=== PATIENT | female | born 1995 | race African-American/Black ===

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

== ENCOUNTER 2017-07-25 22:29 | Emergency (ER) | payer MEDICAID ==
[~2017-07-25] VITALS: Ht 160 cm; Wt 49.0 kg
--- NOTE | 2017-07-25 22:59 | Emergency Room Report ---
History of Present Illness General Chief Complaint: Abdominal Pain Source: Patient Present Illness HPI 22-year-old female p/w epigastric abd pain for 2 days. Patient states pain started gradually , localized to epigastric area, non radiating, burning in nature, intermittent. No relieving or exacerbating factors. Pt reports n/v, more than 5 episodes of nbnb vomiting,Denies black or bloody stools. Patient was admitted to [facility] in the past for cyclic vomiting syndrome Denies fever, chills. No hx of abdominal surgeries. No hx of endoscopies/colonoscopies. Denies any drug or alcohol use. Patient is currently on her menstrual cycle right now. Patient states that she went to [facility] yesterday who gave her medications and sent her home Allergies: Coded Allergies: No Known Allergies (Unverified , 10/02/15) Patient History Past Medical History: see triage record Past Surgical History: none Pertinent Family History: none Last Menstrual Period: July Reviewed Nursing Documentation: PMH: Agreed; PSxH: Agreed Nursing Documentation-PMH Hx Cardiac Problems: No Hx Asthma: Yes Hx Cancer: No Hx Gastrointestinal Problems: Yes - Abdominal Pain Hx Neurological Problems: Yes Hx Headaches: Yes - Migraines Review of Systems All Other Systems: negative except mentioned in HPI Physical Exam Vital Signs Date Time Temp Pulse Resp B/P (MAP) Pulse Ox O2 Delivery O2 Flow Rate FiO2 07/25/17 22:31 98.3 66 18 116/56 99 Room Air 98.2 Sp02 EP Interpretation: reviewed, normal General Appearance: alert, GCS 15, non-toxic, mild distress Head: normocephalic, atraumatic Eyes: bilateral eye normal inspection, bilateral eye PERRL, bilateral eye EOMI ENT: normal ENT inspection, normal pharynx, normal voice, moist mucus membranes Neck: normal inspection, full range of motion, supple Respiratory: normal inspection, lungs clear, normal breath sounds, no respiratory distress, no retraction, no wheezing, speaking full sentences, chest symmetrical Cardiovascular #1: normal inspection, regular rate, rhythm, no edema, normal capillary refill Cardiovascular #2: 2+ radial (R), 2+ radial (L) Gastrointestinal: other - Mild epigastric tenderness, no guarding no rebound, no focal right lower quadrant or left lower quadrant tenderness Musculoskeletal: normal inspection, back normal, normal range of motion, non- tender Neurologic: normal inspection, alert, oriented x3, responsive, motor strength/ tone normal, sensory intact, normal gait, speech normal Psychiatric: normal inspection, judgement/insight normal, memory normal Skin: normal inspection, normal color, no rash, warm/dry, well hydrated, normal turgor Medical Decision Making Diagnostic Impression: Primary Impression: Epigastric pain Additional Impression: Nausea and vomiting ER Course 22-year-old female with nausea vomiting and epigastric abdominal pain Differential Diagnosis: Gastritis, gastroenteritis, UTI/pyelo Plan: Basic labs, ua Pepcid, maalox, pain control, IVF ER course: Patient has remained stable during ED stay. Pain improved. no furhter episodes vomiting +leukocytosis, likely 2/2 to vomiting, ketones in urine given fluids VSS afebrile and nontoxic appearing Disposition: Patient is to be discharged to home. Prescriptions given are Pepcid and Zofran Patient is instructed to follow up with their primary care doctor within 5 days. Strict return precautions discussed with patient such as fever, chills, worsening/severe abdominal pain, nausea, vomiting, black or bloody stools, which may indicate severe illness. Patient verbalizes understanding and agrees with plan. Please note that this Emergency Department Report was dictated using Jive Softwareprocedural nurse technology software, occasionally this can lead to erroneous entry secondary to interpretation by the dictation equipment Laboratory Tests Test 07/25/17 22:40 07/25/17 22:55 Urine Color Brown Urine Appearance Slightly cloudy Urine pH 6 (4.5-8.0) Urine Specific [place] 1.020 (1.005-1.035) Urine Protein 3+ (NEGATIVE) H Urine Glucose (UA) Negative (NEGATIVE) Urine Ketones 2+ (NEGATIVE) H Urine Occult Blood 5+ (NEGATIVE) H Urine Nitrite Negative (NEGATIVE) Urine Bilirubin Negative (NEGATIVE) Urine Urobilinogen 1 MG/DL (0.0-1.0) H Urine Leukocyte Esterase 2+ (NEGATIVE) H Urine RBC 10-15 /HPF (0 - 2) H Urine WBC 2-4 /HPF (0 - 2) Urine Squamous Epithelial Cells Few /LPF (NONE/OCC) Urine Amorphous Sediment Few /LPF (NONE) H Urine Bacteria Few /HPF (NONE) Urine HCG, Qualitative Negative (NEGATIVE) Urine Opiates Screen Negative (NEGATIVE) Urine Barbiturates Screen Negative (NEGATIVE) Phencyclidine (PCP) Screen Positive (NEGATIVE) H Urine Amphetamines Screen Negative (NEGATIVE) Urine Benzodiazepines Screen Negative (NEGATIVE) Urine Cocaine Screen Negative (NEGATIVE) Urine Marijuana (THC) Screen Negative (NEGATIVE) White Blood Count 17.3 K/UL (4.8-10.8) H Red Blood Count 4.82 M/UL (4.20-5.40) Hemoglobin 14.8 G/DL (12.0-16.0) Hematocrit 42.9 % (37.0-47.0) Mean Corpuscular Volume 89 FL (80-99) Mean Corpuscular Hemoglobin 30.7 PG (27.0-31.0) Mean Corpuscular Hemoglobin Concent 34.5 G/DL (32.0-36.0) Red Cell Distribution Width 12.7 % (11.6-14.8) Platelet Count 280 K/UL (150-450) Mean Platelet Volume 6.2 FL (6.5-10.1) L Neutrophils (%) (Auto) % (45.0-75.0) Lymphocytes (%) (Auto) % (20.0-45.0) Monocytes (%) (Auto) % (1.0-10.0) Eosinophils (%) (Auto) % (0.0-3.0) Basophils (%) (Auto) % (0.0-2.0) Sodium Level 134 MMOL/L (136-145) L Potassium Level 4.7 MMOL/L (3.5-5.1) Chloride Level 100 MMOL/L (98-107) Carbon Dioxide Level 24 MMOL/L (21-32) Anion Gap 10 mmol/L (5-15) Blood Urea Nitrogen 11 mg/dL (7-18) Creatinine 1.0 MG/DL (0.55-1.30) Estimate Glomerular Filtration Rate > 60 mL/min (>60) Glucose Level 100 MG/DL (74-106) Calcium Level 9.7 MG/DL (8.5-10.1) Total Bilirubin 1.7 MG/DL (0.2-1.0) H Direct Bilirubin 0.1 MG/DL (0.0-0.3) Aspartate Amino Transferase (AST) 43 U/L (15-37) H Alanine Aminotransferase (ALT) 27 U/L (12-78) Alkaline Phosphatase 61 U/L (46-116) Total Protein 8.4 G/DL (6.4-8.2) H Albumin 4.3 G/DL (3.4-5.0) Globulin 4.1 g/dL Albumin/Globulin Ratio 1.0 (1.0-2.7) Lipase 173 U/L (73-393) Last Vital Signs Date Time Temp Pulse Resp B/P (MAP) Pulse Ox O2 Delivery O2 Flow Rate FiO2 07/25/17 22:31 98.3 66 18 116/56 99 Room Air 98.2 Disposition: HOME, SELF-CARE Condition: Improved Scripts Ondansetron Odt* (ZOFRAN ODT*) 4 Mg Tab.rapdis 4 MG ORAL Q6H PRN for Nausea & Vomiting, #30 TAB 0 Refills Prov: Karen Woody M.D. 07/25/17 Famotidine (PEPCID) 40 Mg Tablet 40 MG PO DAILY, #7 TAB 0 Refills Prov: Karen Woody M.D. 07/25/17 Karen Woody M.D. Jul 25, 2017 22:59
[2017-07-25] MEDS ORDERED: ZOFRAN ODT4 MG ORAL (23:01)
[2017-07-25] MEDS ORDERED: PEPCID40 MG PO (23:01)
[2017-07-25 23:17] LABS: BILIRUBIN, URINE NEGATIVE (NEGATIVE); GLUCOSE, URINE (UA) NEGATIVE (NEGATIVE); KETONES,URINE 2+ (NEGATIVE); LEUKOCYTE ESTERASE ,URINE 2+ (NEGATIVE); NITRITE,URINE NEGATIVE (NEGATIVE); PH,URINE 6 (4.5-8.0); PROTEIN,URINE 3+ (NEGATIVE); UROBILINOGEN,URINE 1 MG/DL (0.0-1.0)
[2017-07-25 23:20] LABS: HEMATOCRIT 42.9 % (37.0-47.0); HEMOGLOBIN 14.8 G/DL (12.0-16.0); MEAN CORPUSCULAR VOLUME 89 FL (80-99); PLATELET COUNT 280 K/UL (150-450); RED BLOOD COUNT 4.82 M/UL (4.20-5.40); RED CELL DISTRIBUTION WIDTH 12.7 % (11.6-14.8); WHITE BLOOD COUNT 17.3 K/UL (4.8-10.8)
[2017-07-25 23:20] LABS: APPEARANCE,URINE SLIGHTLY CLOUDY; COLOR,URINE BROWN
[2017-07-25 23:39] LABS: ANION GAP 10 mmol/L (5-15); BLOOD UREA NITROGEN 11 mg/dL (7-18); CALCIUM 9.7 MG/DL (8.5-10.1); CARBON DIOXIDE 24 MMOL/L (21-32); CHLORIDE 100 MMOL/L (98-107); POTASSIUM 4.7 MMOL/L (3.5-5.1); SODIUM 134 MMOL/L (136-145)
[2017-07-25 23:49] LABS: ALANINE AMINOTRANSFERASE 27 U/L (12-78); ALBUMIN 4.3 G/DL (3.4-5.0); ALKALINE PHOSPHATASE 61 U/L (46-116); ASPARTATE AMINO TRANSFERASE 43 U/L (15-37); BILIRUBIN,TOTAL 1.7 MG/DL (0.2-1.0)
[2017-07-26] LABS: BILIRUBIN,DIRECT 0.1 MG/DL (0.0-0.3)
[2017-07-26] MEDS ORDERED: Morphine Sulfate 4mg/ml Inj IVP ONE (00:15)
[2017-07-26 01:20] VITALS: BP 110/54
--- NOTE | 2017-07-26 16:23 | Diagnostic Imaging Report ---
Indication: Pain Technique: XRAY Chest 1v Comparison: 07/23/2016 Findings: There is a subacute is emphysema projecting over the neck and bilateral supraclavicular regions. Air noted in the upper mediastinum. Heart size and mediastinal contours are within normal limits. There is no focal airspace consolidation, pleural effusion or pneumothorax. No acute osseous abnormality seen. IMPRESSION: Subcutaneous emphysema and pneumomediastinum, possibly related to esophageal injury given history of vomiting. Further evaluation with CT of the chest can be obtained as clinically indicated. Consider endoscopy. This discrepant from the preliminary interpretation of the treating ER clinician. Findings of the finalized report discussed with Dr. Escobar of the ER 07/26/17.
== END 2017-07-26 01:15 | disposition home or self-care (01) ==
LOC: EMR 22:50
DX: R10.13 Epigastric pain (principal); R11.2 Nausea with vomiting, unspecified
CPT/HCPCS: 36415; 71045; 80053; 80307; 81003; 81025; 82248; 83690; 85025; 96361; 96374; 96375; 99284; J2270; J2405; S0028

== ENCOUNTER 2017-08-01 17:48 | Emergency (ER) | payer MEDICAID ==
[~2017-08-01] VITALS: Ht 160 cm; Wt 49.0 kg
[~2017-08-01 17:48] MED LIST changes: +PEPCID40 MG PO
[2017-08-01 18:22] VITALS: BP 103/72
[2017-08-01] MEDS ORDERED: Fluconazole 100mg tab ORAL ONE (18:30)
--- NOTE | 2017-08-01 18:42 | Emergency Room Report ---
History of Present Illness General Chief Complaint: General Complaint Source: Patient Present Illness HPI 22-year-old female presents to the emergency department after receiving ladder regarding findings on her official x-ray readings. Patient was seen here in the emergency department last week. Patient was here because she was having multiple episodes of vomiting. Patient states that ultimately she was prescribed some antibiotics and she believes she has a yeast infection after taking the antibiotics. Patient reports a itchy/burning discomfort to the external vaginal area. She denies shortness of breath, cough, difficulty breathing, pain with breathing. Patient denies chest pain or palpitations. She reports previous symptoms have completely resolved. Allergies: Coded Allergies: No Known Allergies (Unverified , 10/02/15) Patient History Past Medical History: see triage record Past Surgical History: none Last Menstrual Period: 07/22/17 Nursing Documentation-[facility] Hx Cardiac Problems: No Hx Asthma: Yes Hx Cancer: No Hx Gastrointestinal Problems: Yes - Gastritis Hx Neurological Problems: Yes Hx Headaches: Yes - Migraines Review of Systems All Other Systems: negative except mentioned in HPI Physical Exam Vital Signs Date Time Temp Pulse Resp B/P (MAP) Pulse Ox O2 Delivery O2 Flow Rate FiO2 08/01/17 18:12 98.3 75 17 103/72 98 Room Air 98.2 Sp02 EP Interpretation: reviewed, normal General Appearance: no apparent distress, alert, GCS 15, non-toxic Head: normocephalic, atraumatic ENT: hearing grossly normal, normal voice Neck: full range of motion Respiratory: normal inspection, chest non-tender, lungs clear, normal breath sounds, no rhonchi, no respiratory distress, no accessory muscle use, no wheezing, speaking full sentences Cardiovascular #1: regular rate, rhythm, no edema, normal capillary refill Gastrointestinal: normal bowel sounds, non tender, soft Rectal: deferred Genitourinary: normal inspection, no CVA tenderness, ext genitalia/vag normal - skin irritation externally, no d/c, no blood. Musculoskeletal: back normal, gait/station normal, normal range of motion, non- tender Neurologic: alert, oriented x3, responsive, motor strength/tone normal, sensory intact, speech normal, grossly normal Psychiatric: judgement/insight normal Skin: normal color, no rash, warm/dry, well hydrated Lymphatic: no adenopathy Medical Decision Making PA Attestation Dr. flores is my supervising Physician whom patient management has been discussed with. Diagnostic Impression: Primary Impression: Vaginitis Qualified Codes: N76.0 - Acute vaginitis Additional Impression: Abnormal chest xray ER Course 22-year-old female presents to the emergency department after receiving ladder regarding findings on her official x-ray readings. Patient was seen here in the emergency department last week. Patient was here because she was having multiple episodes of vomiting. Patient states that ultimately she was prescribed some antibiotics and she believes she has a yeast infection after taking the antibiotics. Patient reports a itchy/burning discomfort to the external vaginal area. She denies shortness of breath, cough, difficulty breathing, pain with breathing. Patient denies chest pain or palpitations. She reports previous symptoms have completely resolved. Ddx considered but are not limited to Pneumomediastinum, Fx, vaginitis, STI, UTI just to name a few. Vital signs: are WNL, pt. is afebrile, -Review of the final radiology report for this patient's chest x-ray shows evidence of an subcutaneous air/pneumomediastinum. Which strongly correlated with patient's complaining of multiple episodes of vomiting. On physical exam patient is NAD, non-toxic in appearance, lungs are clear bilaterally ,no chest tenderness, good oxygen saturation and normal cap refill. H&PE are most consistent with Yeast infection secondary to recent abx usage. ORDERS: none required at this time, the diagnosis is clinical ED INTERVENTIONS: -Diflucan PO -I do not identify an emergent condition at this time. Despite previous xray findings, pt. is asymptomatic at this time. With current presentation, pt. is stable for close outpatient follow up and conservative treatment. D/w pt. to return promptly to ED with worsening or new symptoms.- Pt. (and or responsible republican) verbalizes' understanding and agreement with proposed treatment plan.proposed treatment plan. DISCHARGE: At this time pt. is stable for d/c to home. Will provide printed patient care instructions, and any necessary prescriptions. Care plan and follow up instructions have been discussed with the patient prior to discharge. Last Vital Signs Date Time Temp Pulse Resp B/P (MAP) Pulse Ox O2 Delivery O2 Flow Rate FiO2 08/01/17 18:12 98.3 75 17 103/72 98 Room Air 98.2 Disposition: HOME, SELF-CARE Condition: Stable Scripts Fluconazole (FLUCONAZOLE) 100 Mg Tablet 100 MG ORAL DAILY, #3 TAB 0 Refills Prov: Nohemi Merritt 08/01/17 Referrals: [facility],REF (PCP) Patient Instructions: Vaginal Yeast Infection, Adult Additional Instructions: Take medications as directed. Follow up with a Primary Care Provider in 3-5 days, even if your symptoms have resolved. --Please review list of primary care clinics, if you do not already have a primary care provider Return sooner to ED if new symptoms occur, or current symptoms become worse. - Please note that this Emergency Department Report was dictated using Analizaadmitted attorneys technology software, occasionally this can lead to erroneous entry secondary to interpretation by the dictation equipment. Nohemi Merritt Aug 01, 2017 18:42
[2017-08-01] MEDS ORDERED: FLUCONAZOLE100 MG ORAL (18:44)
[2017-08-01 18:55] VITALS: BP 98/65
[2017-08-01 19:00] VITALS: BP 98/65
== END 2017-08-01 19:02 | disposition home or self-care (01) ==
LOC: EMR 18:25
DX: N76.0 Acute vaginitis (principal); R93.8 Abnormal findings on diagnostic imaging of other specified body structures; J45.909 Unspecified asthma, uncomplicated; K29.70 Gastritis, unspecified, without bleeding; G43.909 Migraine, unspecified, not intractable, without status migrainosus; T79.7XXA Traumatic subcutaneous emphysema, initial encounter
CPT/HCPCS: 99283

== ENCOUNTER 2017-12-11 10:35 | Emergency (ER) | payer MEDICAID ==
[~2017-12-11] VITALS: Ht 160 cm; Wt 54.4 kg
[~2017-12-11 10:35] MED LIST changes: +FLUCONAZOLE100 MG ORAL
[2017-12-11 11:01] VITALS: BP 124/82
[2017-12-11] MEDS ORDERED: Morphine Sulfate 4mg/ml Inj (IV USE ONLY) IVP ONE ×2 (11:15→12:30)
[2017-12-11 11:35] LABS: HEMATOCRIT 43.9 % (37.0-47.0); HEMOGLOBIN 14.1 G/DL (12.0-16.0); MEAN CORPUSCULAR VOLUME 87 FL (80-99); PLATELET COUNT 318 K/UL (150-450); RED BLOOD COUNT 5.04 M/UL (4.20-5.40); RED CELL DISTRIBUTION WIDTH 13.2 % (11.6-14.8); WHITE BLOOD COUNT 9.6 K/UL (4.8-10.8)
[2017-12-11 11:43] LABS: ANION GAP 12 mmol/L (5-15); BLOOD UREA NITROGEN 12 mg/dL (7-18); CALCIUM 9.2 MG/DL (8.5-10.1); CARBON DIOXIDE 26 MMOL/L (21-32); CHLORIDE 104 MMOL/L (98-107); POTASSIUM 3.9 MMOL/L (3.5-5.1); SODIUM 142 MMOL/L (136-145)
[2017-12-11 11:47] LABS: ALANINE AMINOTRANSFERASE 18 U/L (12-78); ALBUMIN 4.2 G/DL (3.4-5.0); ALBUMIN/GLOBULIN RATIO 1.1 (1.0-2.7); ALKALINE PHOSPHATASE 56 U/L (46-116); ASPARTATE AMINO TRANSFERASE 22 U/L (15-37); BILIRUBIN,TOTAL 0.6 MG/DL (0.2-1.0)
[2017-12-11 11:51] LABS: APPEARANCE,URINE CLEAR; COLOR,URINE YELLOW; PH,URINE 7 (4.5-8.0)
[2017-12-11 11:52] LABS: BILIRUBIN, URINE NEGATIVE (NEGATIVE); GLUCOSE, URINE (UA) NEGATIVE (NEGATIVE); KETONES,URINE 3+ (NEGATIVE); LEUKOCYTE ESTERASE ,URINE 1+ (NEGATIVE); NITRITE,URINE NEGATIVE (NEGATIVE); PROTEIN,URINE 1+ (NEGATIVE); UROBILINOGEN,URINE 1 MG/DL (0.0-1.0)
--- NOTE | 2017-12-11 14:24 | Emergency Room Report ---
History of Present Illness General Chief Complaint: Nausea, Vomiting, and Diarrhea Source: Patient Present Illness HPI Patient with 3 days of NVD. Epigastric pain now = burning and not radiating. No meds taken. Not vomit blood. No black stool. Thinks she ate bad food. Pain is 10/10, epigastric. She's had this pain in the past. She is not certain of diagnosis in past. No h/o endoscopy. She doesn't believe she is . Has had this in the past. Never hospitalized for this pain. Was hospitalized 1 year ago with pyelonephritis/sepsis and pain that was in lower abdomen. No dysuria at this time. US was performed. CT performed July 2016: Findings: Exam is limited due to delayed phase of scanning,, limited enteric contrast ingestion. There is also some respiratory motion artifact limiting visualization of the upper abdomen. The appendix is normal. There is no evidence of diverticulosis or diverticulitis. No small bowel distention or small bowel wall thickening. Contrast is seen to have reached the colon. There is a small amount of free pelvic fluid. No free intraperitoneal air. The liver, gallbladder, bile ducts, pancreas, spleen, adrenals, kidneys are unremarkable. No mesenteric or retroperitoneal mass or adenopathy. Again demonstrated is thickening of the endometrium. The included lung bases are clear. The bones are unremarkable Impression: Limited exam, as described. No definite acute process Nonspecific endometrial thickening. Please reference prior reports Small amount of free pelvic fluid, most likely physiologic Allergies: Coded Allergies: No Known Allergies (Unverified , 10/02/15) Patient History Past Medical History: see triage record Social History: Reports: drug use; Denies: smoking Social History Narrative working Last Menstrual Period: few days ago Now: No - unk Reviewed Nursing Documentation: PMH: Agreed; PSxH: Agreed Nursing Documentation-PMH Hx Cardiac Problems: No Hx Asthma: Yes Hx Cancer: No Hx Gastrointestinal Problems: Yes - Gastritis Hx Neurological Problems: Yes Hx Headaches: Yes - Migraines Physical Exam Vital Signs Date Time Temp Pulse Resp B/P (MAP) Pulse Ox O2 Delivery O2 Flow Rate FiO2 12/11/17 10:51 98.0 101 25 124/82 99 Room Air 98.1 Sp02 EP Interpretation: reviewed, normal General Appearance: well appearing, no apparent distress, GCS 15 Head: normocephalic Eyes: bilateral eye normal inspection, bilateral eye PERRL ENT: moist mucus membranes Neck: supple Respiratory: lungs clear, normal breath sounds Cardiovascular #1: regular rate, rhythm Cardiovascular #2: 2+ radial (R) Gastrointestinal: normal inspection, normal bowel sounds, soft, no mass, non- distended, no guarding, no rebound, tenderness - epigastric Musculoskeletal: back normal, gait/station normal, normal range of motion Neurologic: alert, oriented x3, grossly normal Psychiatric: anxious Skin: normal inspection, warm/dry Medical Decision Making Diagnostic Impression: Primary Impression: Abdominal pain Qualified Codes: R10.13 - Epigastric pain Additional Impression: Nausea, vomiting, and diarrhea ER Course Patient presents with epigastric pain. Ddx: GItis, PUD, pancreatitis, gall bladder disease amongst others. She has significant pain. Exam and CT makes cholecystitis/colic less likely due to where pain is. Evaluation with labs. Treatment with pepcid, morphine and zofran. She has no fever and is not toxic. Labs with normal WBC and H/H. CMP normal with normal lipase. Improving. Patient still in pain.. Morphine repeated. Pain completely resolved. Soft abdomen. Patient wants to go home. Discussed that she is being observed at home and to return if pain returns. (Consider imaging.) Patient stable for outpatient observation and treatment.. Laboratory Tests Test 12/11/17 11:15 White Blood Count 9.6 K/UL (4.8-10.8) Red Blood Count 5.04 M/UL (4.20-5.40) Hemoglobin 14.1 G/DL (12.0-16.0) Hematocrit 43.9 % (37.0-47.0) Mean Corpuscular Volume 87 FL (80-99) Mean Corpuscular Hemoglobin 27.9 PG (27.0-31.0) Mean Corpuscular Hemoglobin Concent 32.0 G/DL (32.0-36.0) Red Cell Distribution Width 13.2 % (11.6-14.8) Platelet Count 318 K/UL (150-450) Mean Platelet Volume 6.2 FL (6.5-10.1) L Neutrophils (%) (Auto) % (45.0-75.0) Lymphocytes (%) (Auto) % (20.0-45.0) Monocytes (%) (Auto) % (1.0-10.0) Eosinophils (%) (Auto) % (0.0-3.0) Basophils (%) (Auto) % (0.0-2.0) Differential Total Cells Counted 100 Neutrophils % (Manual) 85 % (45-75) H Lymphocytes % (Manual) 13 % (20-45) L Monocytes % (Manual) 2 % (1-10) Eosinophils % (Manual) 0 % (0-3) Basophils % (Manual) 0 % (0-2) Band Neutrophils 0 % (0-8) Platelet Estimate Adequate Platelet Morphology Normal Red Blood Cell Morphology Normal Urine Color Yellow Urine Appearance Clear Urine pH 7 (4.5-8.0) Urine Specific [place] 1.010 (1.005-1.035) Urine Protein 1+ (NEGATIVE) H Urine Glucose (UA) Negative (NEGATIVE) Urine Ketones 3+ (NEGATIVE) H Urine Occult Blood 1+ (NEGATIVE) H Urine Nitrite Negative (NEGATIVE) Urine Bilirubin Negative (NEGATIVE) Urine Urobilinogen 1 MG/DL (0.0-1.0) H Urine Leukocyte Esterase 1+ (NEGATIVE) H Urine RBC 2-4 /HPF (0 - 2) H Urine WBC 0-2 /HPF (0 - 2) Urine Squamous Epithelial Cells Occasional /LPF Urine Bacteria Few /HPF (NONE) Urine Mucus Few /LPF (NONE/OCC) H Urine HCG, Qualitative Negative (NEGATIVE) Sodium Level 142 MMOL/L (136-145) Potassium Level 3.9 MMOL/L (3.5-5.1) Chloride Level 104 MMOL/L (98-107) Carbon Dioxide Level 26 MMOL/L (21-32) Anion Gap 12 mmol/L (5-15) Blood Urea Nitrogen 12 mg/dL (7-18) Creatinine 1.0 MG/DL (0.55-1.30) Estimate Glomerular Filtration Rate > 60 mL/min (>60) Glucose Level 113 MG/DL (74-106) H Calcium Level 9.2 MG/DL (8.5-10.1) Total Bilirubin 0.6 MG/DL (0.2-1.0) Aspartate Amino Transferase (AST) 22 U/L (15-37) Alanine Aminotransferase (ALT) 18 U/L (12-78) Alkaline Phosphatase 56 U/L (46-116) Total Protein 8.1 G/DL (6.4-8.2) Albumin 4.2 G/DL (3.4-5.0) Globulin 3.9 g/dL Albumin/Globulin Ratio 1.1 (1.0-2.7) Lipase 142 U/L (73-393) Last Vital Signs Date Time Temp Pulse Resp B/P (MAP) Pulse Ox O2 Delivery O2 Flow Rate FiO2 12/11/17 14:57 97.7 71 18 105/63 99 Room Air 97.7 Status: improved Disposition: HOME, SELF-CARE Condition: Improved Scripts Ondansetron Odt* (ZOFRAN ODT*) 4 Mg Tab.rapdis 4 MG BC EVERY 8 HOURS, #4 TAB 1 Refill Prov: Dion Coppola M.D. 12/11/17 Tramadol Hcl* (ULTRAM*) 50 Mg Tablet 50 MG ORAL Q6H PRN for For Pain, #8 TAB 0 Refills Prov: Dion Coppola M.D. 12/11/17 Famotidine (PEPCID AC) 20 Mg Tablet 20 MG PO DAILY, #14 TAB Prov: Dion Coppola M.D. 12/11/17 Referrals: NON PHYSICIAN (PCP) Dion Coppola M.D. Dec 11, 2017 14:24
[2017-12-11] MEDS ORDERED: PEPCID AC20 M2 PO (14:28)
[2017-12-11] MEDS ORDERED: TRAMADOL HCL50 MG ORAL (14:28)
[2017-12-11] MEDS ORDERED: ONDANSETRON ODT4 MG BC (14:28)
[2017-12-11 14:57] VITALS: BP 105/63
== END 2017-12-11 14:58 | disposition home or self-care (01) ==
LOC: EMR 11:25
DX: R10.13 Epigastric pain (principal); R11.2 Nausea with vomiting, unspecified; R19.7 Diarrhea, unspecified; J45.909 Unspecified asthma, uncomplicated
CPT/HCPCS: 36415; 80053; 81003; 81025; 83690; 85007; 85025; 96361; 96374; 96375; 96376; 99284; J2270; J2405; S0028

== ENCOUNTER 2018-01-23 21:47 | Emergency (ER) | payer MEDICAID ==
[~2018-01-23] VITALS: Ht 160 cm; Wt 53.5 kg
[~2018-01-23 21:47] MED LIST changes: +ONDANSETRON ODT4 MG BC; +PEPCID AC20 M2 PO; +TRAMADOL HCL50 MG ORAL
--- NOTE | 2018-01-23 22:35 | Emergency Room Report ---
History of Present Illness General Chief Complaint: Nausea, Vomiting, and Diarrhea Source: Patient Present Illness HPI Patient is a 23-year-old female who presented after increased abdominal pain with nausea and vomiting. Patient was having increased epigastric pain associated with nausea and vomiting. Having some episodes of diarrhea. She reports having primarily epigastric pain. She states she's had similar symptoms in the past. She denies any fever. She reports having increased generalized weakness. Allergies: Coded Allergies: No Known Allergies (Unverified , 10/02/15) Patient History Last Menstrual Period: Now: No Reviewed Nursing Documentation: PMH: Agreed; PSxH: Agreed Nursing Documentation-PMH Past Medical History: No Stated History Hx Cardiac Problems: No Hx Asthma: Yes Hx Cancer: No Hx Gastrointestinal Problems: Yes - Gastritis Hx Neurological Problems: Yes Hx Headaches: Yes - Migraines Review of Systems All Other Systems: negative except mentioned in HPI Physical Exam Vital Signs Date Time Temp Pulse Resp B/P (MAP) Pulse Ox O2 Delivery O2 Flow Rate FiO2 01/23/18 21:53 98.7 81 16 129/89 100 98.8 Sp02 EP Interpretation: reviewed, normal General Appearance: normal inspection, alert, thin Head: atraumatic ENT: normal ENT inspection, hearing grossly normal, normal voice Neck: normal inspection, full range of motion, supple, no bony tend Respiratory: normal inspection, lungs clear, normal breath sounds, no respiratory distress, no retraction, no wheezing Cardiovascular #1: regular rate, rhythm, no edema Gastrointestinal: normal inspection, normal bowel sounds, non tender, soft, no guarding, no hernia Genitourinary: no CVA tenderness Musculoskeletal: normal inspection, back normal, normal range of motion Neurologic: normal inspection, alert, oriented x3, responsive, cloth desizing range operator chief III-XII nml as tested, speech normal Psychiatric: normal inspection, judgement/insight normal, mood/affect normal Skin: normal inspection, normal color, no rash, pallor Medical Decision Making Diagnostic Impression: Primary Impression: Abdominal pain ER Course Patient presented for abdominal pain. Differential diagnoses included ischemic bowel, appendicitis, perforated viscus, abdominal aortic aneurysm, inferior myocardial infarction, viral gastroenteritis. Because of complexity of patient' s case laboratory testing and imaging studies were ordered. The patient given IV fluids as well as IV acid blockers and antiemetics.The patient does not appear to have evidence of bowel obstruction. The patient's to the stated she felt much better want to go home.The patient is advised to follow up with primary care doctor in 1-2 days. Patient is advised to return if any worsening condition or if any changes in status that are concerning. This report is dictated with [employer] tuckpointer software which may occasionally lead to discrepancies related to use of this software. Last Vital Signs Date Time Temp Pulse Resp B/P (MAP) Pulse Ox O2 Delivery O2 Flow Rate FiO2 01/23/18 21:53 98.7 81 16 129/89 100 98.8 Status: improved Disposition: HOME, SELF-CARE Condition: Stable Scripts Ondansetron* (ZOFRAN*) 4 Mg Tablet 4 MG ORAL Q6H PRN for Nausea & Vomiting, #20 TAB Prov: Richie Garcia MD 01/24/18 Famotidine (PEPCID AC) 20 Mg Tablet 20 MG PO DAILY, #30 TAB Prov: Richie Garcia MD 01/24/18 Richie Garcia MD Jan 23, 2018 22:35
[2018-01-23 22:44] LABS: APPEARANCE,URINE CLOUDY; BASOPHILS % (AUTO) 0.4 % (0.0-2.0); BILIRUBIN, URINE NEGATIVE (NEGATIVE); EOSINOPHILS % (AUTO) 0.8 % (0.0-3.0); GLUCOSE, URINE (UA) NEGATIVE (NEGATIVE); HEMATOCRIT 42.9 % (37.0-47.0); HEMOGLOBIN 14.2 G/DL (12.0-16.0); KETONES,URINE 1+ (NEGATIVE); LEUKOCYTE ESTERASE ,URINE 1+ (NEGATIVE); LYMPHOCYTES % (AUTO) 13.3 % (20.0-45.0); MEAN CORPUSCULAR VOLUME 85 FL (80-99); NEUTROPHILS % (AUTO) 77.5 % (45.0-75.0); NITRITE,URINE NEGATIVE (NEGATIVE); PH,URINE 8 (4.5-8.0); PLATELET COUNT 359 K/UL (150-450); PROTEIN,URINE 1+ (NEGATIVE); RED BLOOD COUNT 5.02 M/UL (4.20-5.40); RED CELL DISTRIBUTION WIDTH 12.9 % (11.6-14.8); UROBILINOGEN,URINE 8 MG/DL (0.0-1.0); WHITE BLOOD COUNT 12.3 K/UL (4.8-10.8)
[2018-01-23 22:45] LABS: COLOR,URINE YELLOW
[2018-01-23] MEDS ORDERED: Haloperidol Lactate 5 MG in D5W 55 ML IVPB ONE (22:45)
[2018-01-23] MEDS ORDERED: D5NS 1,000 ML IV ONE (22:45)
[2018-01-23 22:49] LABS: ANION GAP 10 mmol/L (5-15); BLOOD UREA NITROGEN 11 mg/dL (7-18); CALCIUM 9.1 MG/DL (8.5-10.1); CARBON DIOXIDE 25 MMOL/L (21-32); CHLORIDE 102 MMOL/L (98-107); CREATININE 1.1 MG/DL (0.55-1.30); POTASSIUM 3.1 MMOL/L (3.5-5.1); SODIUM 137 MMOL/L (136-145)
[2018-01-23 23:00] LABS: ALANINE AMINOTRANSFERASE 26 U/L (12-78); ALBUMIN 4.2 G/DL (3.4-5.0); ALBUMIN/GLOBULIN RATIO 1.1 (1.0-2.7); ALKALINE PHOSPHATASE 60 U/L (46-116); ASPARTATE AMINO TRANSFERASE 16 U/L (15-37)
[2018-01-23 23:04] VITALS: BP 136/76
[2018-01-24] MEDS ORDERED: ZOFRAN4 M3 ORAL (00:16)
[2018-01-24] MEDS ORDERED: PEPCID AC20 M2 PO (00:16)
[2018-01-24 00:27] VITALS: BP 115/75
== END 2018-01-24 00:19 | disposition home or self-care (01) ==
LOC: EMR 22:11
DX: R10.13 Epigastric pain (principal); R11.2 Nausea with vomiting, unspecified; J45.909 Unspecified asthma, uncomplicated; Z87.19 Personal history of other diseases of the digestive system; Z86.69 Personal history of other diseases of the nervous system and sense organs
CPT/HCPCS: 36415; 80053; 81003; 81025; 83690; 85025; 85610; 85730; 96365; 96368; 96375; 99285; J1630; S0028; J8499

== ENCOUNTER 2018-05-13 01:18 | Emergency (ER) | payer MEDICAID ==
[~2018-05-13] VITALS: Ht 160 cm; Wt 54.4 kg
--- NOTE | 2018-05-13 01:30 | NUR ---
ED Nurse Note: Pt walked in ER with boyfriend and states she has abdominal pain since this morning. Pt had about 10 times clear liquid vomiting. Pt is AO x 4times, VSS, on room air no distress. Pt states she was in [facility] ER earlier afternoon for the same. KIMBERLEE seen Pt at bedside.
[2018-05-13 01:46] VITALS: BP 110/62
--- NOTE | 2018-05-13 01:52 | Emergency Room Report ---
History of Present Illness General Chief Complaint: Abdominal Pain Source: Patient Present Illness HPI Is a 23-year-old female with history of abdominal pain with nausea vomiting. She presents with chief complaint abdominal pain and vomiting. Onset for 1 day. Unable to keep anything down. She was at [facility] earlier and said they did not do anything for her. 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 She said it made it worse. Denies any other complaint. Pain is 10 out of 10. Claimed that she rarely gets this but her chart showed otherwise. She was here multiple times for the same thing. Actually was admitted also. Nothing made it better. Unable to keep anything down. No diarrhea. Pain is diffuse and sharp in nature. Allergies: Coded Allergies: No Known Allergies (Unverified , 10/02/15) Patient History Past Medical History: see triage record, old chart reviewed Past Surgical History: none Pertinent Family History: none Social History: Denies: smoking Last Menstrual Period: Mar 2018 Now: No Immunizations: other Reviewed Nursing Documentation: PMH: Agreed; PSxH: Agreed Nursing Documentation-PMH Hx Cardiac Problems: No Hx Asthma: Yes Hx Cancer: No Hx Gastrointestinal Problems: Yes - Gastritis Hx Neurological Problems: Yes Hx Headaches: Yes - Migraines Review of Systems Eye: Denies: eye pain, blurred vision ENT: Denies: ear pain, nose congestion, throat swelling Respiratory: Denies: cough, shortness of breath Cardiovascular: Denies: chest pain, palpitations Gastrointestinal: Reports: abdominal pain, nausea, vomiting; Denies: diarrhea Musculoskeletal: Denies: back pain, joint pain Skin: Denies: rash Neurological: Denies: headache, numbness Endocrine: Denies: increased thirst, increased urine Hematologic/Lymphatic: Denies: easy bruising All Other Systems: negative except mentioned in HPI Physical Exam Vital Signs Date Time Temp Pulse Resp B/P (MAP) Pulse Ox O2 Delivery O2 Flow Rate FiO2 05/13/18 01:26 98.2 75 20 114/60 95 Room Air vitals normal Sp02 EP Interpretation: reviewed, normal General Appearance: well appearing, no apparent distress, alert Head: normocephalic, atraumatic Eyes: bilateral eye PERRL, bilateral eye EOMI ENT: hearing grossly normal, normal pharynx Neck: full range of motion, supple, no meningismus Respiratory: chest non-tender, lungs clear, normal breath sounds Cardiovascular #1: regular rate, rhythm, no murmur Gastrointestinal: normal bowel sounds, no mass, no organomegaly, no bruit, non- distended, tenderness - I did not even touch her abdomen before she start yelling in pain. Normal bowel sounds. Musculoskeletal: back normal, gait/station normal, normal range of motion Neurologic: alert, oriented x3 Psychiatric: mood/affect normal Skin: warm/dry Medical Decision Making Diagnostic Impression: Primary Impression: Abdominal pain Qualified Codes: R10.84 - Generalized abdominal pain Additional Impression: Cyclic vomiting syndrome Qualified Codes: G43.A1 - Cyclical vomiting, intractable ER Course Patient with abdominal pain with nausea and vomiting. This is a recurrent problem. Most likely cyclic vomiting syndrome from cannabis use. She does have a elevated white count. On repeat exam abdominal is benign. I see no evidence of acute abdomen or obstruction. She had multiple workup in the past into CT scan and ultrasound. There were normal. I see no need for CT at this moment in time. This is most likely secondary to acute stress response. She is better now after IV fluid and medication. We'll discharge home. Lab Results Impression labs with elevated WBC Rhythm Strip Diag. Results Rhythm Strip Time: 03:37 EP Interpretation: yes Rate: 70 Rhythm: NSR, no PVC's, no ectopy, other - No prolonged QT Last Vital Signs Date Time Temp Pulse Resp B/P (MAP) Pulse Ox O2 Delivery O2 Flow Rate FiO2 05/13/18 01:26 98.2 75 20 114/60 95 Room Air Status: improved Disposition: HOME, SELF-CARE Condition: Stable Scripts Promethazine Hcl* (PHENERGAN*) 25 Mg Tablet 25 MG ORAL Q6H, #15 TAB 0 Refills Prov: Flavio Nelson MD 05/13/18 Additional Instructions: Stop using marijuana. This may cause your vomiting. Follow-up with your Dr. in 2-3 days. Return if symptom worsen. Flavio Nelson MD May 13, 2018 01:52
[2018-05-13] MEDS ORDERED: Promethazine HCl 25 MG in NS 55 ML IVPB ONE (02:00)
[2018-05-13] MEDS ORDERED: Haloperidol Lactate 5 MG in D5W 55 ML IVPB ONE (02:00)
--- NOTE | 2018-05-13 02:08 | NUR ---
ED Nurse Note: Blood and urine collected and sent to Lab.
--- NOTE | 2018-05-13 02:09 | NUR ---
ED Nurse Note: Meds given as ordered.
[2018-05-13 02:21] LABS: HEMATOCRIT 35.1 % (37.0-47.0); HEMOGLOBIN 11.2 G/DL (12.0-16.0); MEAN CORPUSCULAR VOLUME 82 FL (80-99); PLATELET COUNT 302 K/UL (150-450); RED BLOOD COUNT 4.25 M/UL (4.20-5.40); RED CELL DISTRIBUTION WIDTH 14.4 % (11.6-14.8); WHITE BLOOD COUNT 18.1 K/UL (4.8-10.8)
[2018-05-13 02:22] LABS: APPEARANCE,URINE CLEAR; BILIRUBIN, URINE NEGATIVE (NEGATIVE); COLOR,URINE PALE YELLOW; GLUCOSE, URINE (UA) NEGATIVE (NEGATIVE); KETONES,URINE 3+ (NEGATIVE); LEUKOCYTE ESTERASE ,URINE NEGATIVE (NEGATIVE); NITRITE,URINE NEGATIVE (NEGATIVE); PH,URINE 7 (4.5-8.0); PROTEIN,URINE 2+ (NEGATIVE); UROBILINOGEN,URINE NORMAL MG/DL (0.0-1.0)
[2018-05-13 02:43] LABS: ANION GAP 15 mmol/L (5-15); BLOOD UREA NITROGEN 11 mg/dL (7-18); CALCIUM 9.5 MG/DL (8.5-10.1); CARBON DIOXIDE 19 MMOL/L (21-32); CHLORIDE 104 MMOL/L (98-107); CREATININE 0.9 MG/DL (0.55-1.30); POTASSIUM 3.4 MMOL/L (3.5-5.1); SODIUM 138 MMOL/L (136-145)
[2018-05-13] MEDS ORDERED: PHENERGAN25 M1 ORAL (03:37)
[2018-05-13 03:48] VITALS: BP 125/64
--- NOTE | 2018-05-13 03:48 | NUR ---
ED Nurse Note: Pt has seen by Dr. Nelson. All orders carried out. D/c instruction and prescription given to Pt and verbalized understanding. IV/ID band removed. Pt d/c from ED with steady gait, accompanied by her family.
== END 2018-05-13 03:48 | disposition home or self-care (01) ==
LOC: EMR 01:44
DX: R10.9 Unspecified abdominal pain (principal); G43.A0 Cyclical vomiting, in migraine, not intractable; J45.909 Unspecified asthma, uncomplicated; Z87.19 Personal history of other diseases of the digestive system
CPT/HCPCS: 36415; 80048; 80307; 81003; 81025; 85025; 96361; 96365; 96375; 99284; J1630; J2550

== ENCOUNTER 2018-05-17 08:39 | Emergency (ER) | payer MEDICAID ==
[~2018-05-17] VITALS: Ht 160 cm; Wt 52.2 kg
[~2018-05-17 08:39] MED LIST changes: +PHENERGAN25 M1 ORAL
[2018-05-17] MEDS ORDERED: NKM (08:45)
[2018-05-17] MEDS ORDERED: Morphine Sulfate 2mg/ml Inj(IV/IM USE ONLY) IVP ONE (09:00)
--- NOTE | 2018-05-17 09:04 | Emergency Room Report ---
History of Present Illness General Chief Complaint: Vomiting Source: Patient Present Illness HPI The patient presents with nausea and vomiting and abdominal pain. This started on Sunday. She doesn't think she ate anything strange. She's having trouble keeping down any fluids. She vomited a scant amount of blood. She's not moved her bowels for a few days. At home she was drenched in sweat but didn't document any fever. She had some chills. She denies any dysuria. She states she is on her period now. She had a Dep O shot January 08 and had continuing bleeding. She tried taking ranitidine but it didn't help with the pain. The patient has a history of anemia. The patient denies diabetes or other medical problems. No headaches, sore throat, cough, shortness of breath, chest pain, rashes. The patient's been admitted in the past for cyclic vomiting and severe sepsis. The sepsis was after a D&C in June 2016. Allergies: Coded Allergies: No Known Allergies (Unverified , 10/02/15) Patient History Past Medical History: see triage record Social History: Reports: drug use - Last THC was 2 months ago; Denies: smoking , alcohol use Social History Narrative from home Last Menstrual Period: CURRENTLY ON HER PERIOD Now: No : 1 Para: 0 Reviewed Nursing Documentation: PMH: Agreed; PSxH: Agreed Nursing Documentation-PMH Hx Cardiac Problems: No Hx Asthma: Yes Hx Cancer: No Hx Gastrointestinal Problems: Yes - Gastritis Hx Neurological Problems: Yes Hx Headaches: Yes - Migraines Review of Systems All Other Systems: negative except mentioned in HPI Physical Exam Vital Signs Date Time Temp Pulse Resp B/P (MAP) Pulse Ox O2 Delivery O2 Flow Rate FiO2 05/17/18 08:42 98.2 84 19 113/78 99 Room Air Sp02 EP Interpretation: reviewed, normal General Appearance: well appearing, GCS 15, mild distress Head: normocephalic Eyes: bilateral eye PERRL, bilateral eye conjunctivae pale ENT: moist mucus membranes Neck: supple Respiratory: lungs clear, normal breath sounds Cardiovascular #1: regular rate, rhythm Cardiovascular #2: 2+ radial (R) Gastrointestinal: no guarding, no rebound, tenderness - Epigastric Musculoskeletal: back normal, gait/station normal, normal range of motion Neurologic: alert, oriented x3, grossly normal Psychiatric: mood/affect normal Skin: warm/dry, pallor Medical Decision Making Diagnostic Impression: Primary Impression: Epigastric pain Additional Impressions: Vomiting Qualified Codes: R11.2 - Nausea with vomiting, unspecified Hypokalemia ER Course Patient presents with epigastric pain and vomiting. She's quite pale and states she has a history of anemia. She's not tachycardic at the moment. Differential includes gastritis, gastroenteritis, esophagitis, Madisyn-Falk tear, pancreatitis, UTI, cyclic vomiting amongst others. Patient retreated with IV hydration, Zofran and Pepcid with a dose of morphine. Labs remarkable for normal white count. Minimal anemia. Potassium is slightly low. Tox screen positive for THC. Patient is improved and able to tolerate oral potassium and fluids. Repeat dose of morphine was given. Exam is improved without any epigastric tenderness or guarding. Discussed outpatient treatment plan. Patient is stable for outpatient observation and treatment. Laboratory Tests Test 05/17/18 09:00 05/17/18 10:39 White Blood Count 10.6 K/UL (4.8-10.8) Red Blood Count 5.25 M/UL (4.20-5.40) Hemoglobin 13.7 G/DL (12.0-16.0) Hematocrit 43.4 % (37.0-47.0) Mean Corpuscular Volume 83 FL (80-99) Mean Corpuscular Hemoglobin 26.2 PG (27.0-31.0) L Mean Corpuscular Hemoglobin Concent 31.7 G/DL (32.0-36.0) L Red Cell Distribution Width 15.2 % (11.6-14.8) H Platelet Count 388 K/UL (150-450) Mean Platelet Volume 5.8 FL (6.5-10.1) L Neutrophils (%) (Auto) 77.4 % (45.0-75.0) H Lymphocytes (%) (Auto) 13.9 % (20.0-45.0) L Monocytes (%) (Auto) 7.4 % (1.0-10.0) Eosinophils (%) (Auto) 0.6 % (0.0-3.0) Basophils (%) (Auto) 0.7 % (0.0-2.0) Prothrombin Time 10.7 SEC (9.30-11.50) Prothrombin Time INR 1.0 (0.9-1.1) PTT 24 SEC (23-33) Urine Color Brown Urine Appearance Slightly cloudy Urine pH 7 (4.5-8.0) Urine Specific [place] 1.020 (1.005-1.035) Urine Protein 1+ (NEGATIVE) H Urine Glucose (UA) Negative (NEGATIVE) Urine Ketones 1+ (NEGATIVE) H Urine Blood 5+ (NEGATIVE) H Urine Nitrite Negative (NEGATIVE) Urine Bilirubin Negative (NEGATIVE) Urine Urobilinogen 1 MG/DL (0.0-1.0) H Urine Leukocyte Esterase 1+ (NEGATIVE) H Urine RBC 20-30 /HPF (0 - 2) H Urine WBC 0-2 /HPF (0 - 2) Urine Squamous Epithelial Cells Occasional /LPF Urine Amorphous Sediment Few /LPF (NONE) H Urine Bacteria Occasional /HPF (NONE) Urine HCG, Qualitative Negative (NEGATIVE) Sodium Level 140 MMOL/L (136-145) Potassium Level 3.1 MMOL/L (3.5-5.1) L Chloride Level 100 MMOL/L (98-107) Carbon Dioxide Level 26 MMOL/L (21-32) Anion Gap 14 mmol/L (5-15) Blood Urea Nitrogen 10 mg/dL (7-18) Creatinine 1.1 MG/DL (0.55-1.30) Estimate Glomerular Filtration Rate > 60 mL/min (>60) Glucose Level 112 MG/DL (74-106) H Lactic Acid Level 2.00 mmol/L (0.4-2.0) 1.40 mmol/L (0.66-2.22) Calcium Level 9.1 MG/DL (8.5-10.1) Total Bilirubin 0.8 MG/DL (0.2-1.0) Aspartate Amino Transferase (AST) 12 U/L (15-37) L Alanine Aminotransferase (ALT) 22 U/L (12-78) Alkaline Phosphatase 67 U/L (46-116) Total Protein 8.7 G/DL (6.4-8.2) H Albumin 4.5 G/DL (3.4-5.0) Globulin 4.2 g/dL Albumin/Globulin Ratio 1.1 (1.0-2.7) Lipase 154 U/L (73-393) Urine Opiates Screen Negative (NEGATIVE) Urine Barbiturates Screen Negative (NEGATIVE) Phencyclidine (PCP) Screen Negative (NEGATIVE) Urine Amphetamines Screen Negative (NEGATIVE) Urine Benzodiazepines Screen Negative (NEGATIVE) Urine Cocaine Screen Negative (NEGATIVE) Urine Marijuana (THC) Screen Positive (NEGATIVE) H Last Vital Signs Date Time Temp Pulse Resp B/P (MAP) Pulse Ox O2 Delivery O2 Flow Rate FiO2 05/17/18 11:25 98.2 72 19 113/78 99 Room Air Status: improved Disposition: HOME, SELF-CARE Condition: Improved Scripts Tramadol Hcl* (ULTRAM*) 50 Mg Tablet 50 MG ORAL Q6H PRN for For Pain, #4 TAB 0 Refills Prov: Dion Coppola MD 05/17/18 Ondansetron Odt* (ZOFRAN ODT*) 4 Mg Tab.rapdis 4 MG BC EVERY 8 HOURS, #8 TAB 1 Refill Prov: Dion Coppola MD 05/17/18 Dion Coppola MD May 17, 2018 09:04
[2018-05-17 09:18] LABS: APPEARANCE,URINE SLIGHTLY CLOUDY; BILIRUBIN, URINE NEGATIVE (NEGATIVE); GLUCOSE, URINE (UA) NEGATIVE (NEGATIVE); KETONES,URINE 1+ (NEGATIVE); LEUKOCYTE ESTERASE ,URINE 1+ (NEGATIVE); NITRITE,URINE NEGATIVE (NEGATIVE); PH,URINE 7 (4.5-8.0); PROTEIN,URINE 1+ (NEGATIVE); UROBILINOGEN,URINE 1 MG/DL (0.0-1.0)
[2018-05-17 09:19] LABS: COLOR,URINE BROWN
[2018-05-17 09:20] LABS: BASOPHILS % (AUTO) 0.7 % (0.0-2.0); EOSINOPHILS % (AUTO) 0.6 % (0.0-3.0); HEMATOCRIT 43.4 % (37.0-47.0); HEMOGLOBIN 13.7 G/DL (12.0-16.0); LYMPHOCYTES % (AUTO) 13.9 % (20.0-45.0); MEAN CORPUSCULAR VOLUME 83 FL (80-99); MONOCYTES % (AUTO) 7.4 % (1.0-10.0); NEUTROPHILS % (AUTO) 77.4 % (45.0-75.0); PLATELET COUNT 388 K/UL (150-450); RED BLOOD COUNT 5.25 M/UL (4.20-5.40); RED CELL DISTRIBUTION WIDTH 15.2 % (11.6-14.8); WHITE BLOOD COUNT 10.6 K/UL (4.8-10.8)
--- NOTE | 2018-05-17 09:20 | NUR ---
ED Nurse Note:pt. came with c/o upper abd pain and possible UTI, blood and urine sent to labs, IV fluids and pain meds given
[2018-05-17 09:22] VITALS: BP 113/78
[2018-05-17 09:25] LABS: ANION GAP 14 mmol/L (5-15); BLOOD UREA NITROGEN 10 mg/dL (7-18); CALCIUM 9.1 MG/DL (8.5-10.1); CARBON DIOXIDE 26 MMOL/L (21-32); CHLORIDE 100 MMOL/L (98-107); CREATININE 1.1 MG/DL (0.55-1.30); POTASSIUM 3.1 MMOL/L (3.5-5.1); SODIUM 140 MMOL/L (136-145)
[2018-05-17 09:30] LABS: ALANINE AMINOTRANSFERASE 22 U/L (12-78); ALBUMIN 4.5 G/DL (3.4-5.0); ALBUMIN/GLOBULIN RATIO 1.1 (1.0-2.7); ALKALINE PHOSPHATASE 67 U/L (46-116); ASPARTATE AMINO TRANSFERASE 12 U/L (15-37); BILIRUBIN,TOTAL 0.8 MG/DL (0.2-1.0)
[2018-05-17] MEDS ORDERED: Morphine Sulfate 4mg/ml Inj (IV USE ONLY) IVP ONE (10:00)
--- NOTE | 2018-05-17 10:39 | NUR ---
ED Nurse Note:lactic reflax sent to labs
[2018-05-17] MEDS ORDERED: TRAMADOL HCL50 MG ORAL (11:13)
[2018-05-17] MEDS ORDERED: ONDANSETRON ODT4 MG BC (11:13)
[2018-05-17 11:24] VITALS: BP 110/73
[2018-05-17 11:25] VITALS: BP 113/78
--- NOTE | 2018-05-17 11:28 | NUR ---
ED Nurse Note:pt. was cleared for d/c by ER MD she received d/c instructions with prescriptions and she left ER with steady gait and all personal belongings
== END 2018-05-17 11:34 | disposition home or self-care (01) ==
LOC: EMR 08:55
DX: R10.13 Epigastric pain (principal); R11.2 Nausea with vomiting, unspecified; E87.6 Hypokalemia; J45.909 Unspecified asthma, uncomplicated
CPT/HCPCS: 36415; 80053; 80307; 81003; 81025; 83605; 83690; 85025; 85610; 85730; 86850; 86900; 86901; 96361; 96374; 96375; 96376; 99284; J2270; J2405; S0028; J8499

== ENCOUNTER 2018-08-20 13:33 | Emergency (ER) | payer MEDICAID ==
[~2018-08-20] VITALS: Ht 160 cm; Wt 59.0 kg
[2018-08-20 13:58] VITALS: BP 133/93
--- NOTE | 2018-08-20 14:11 | Emergency Room Report ---
History of Present Illness General Chief Complaint: Abdominal Pain Source: Patient, Family Member Present Illness HPI The patient presents with severe epigastric pain and vomiting. This began this morning. She denies vomiting any blood. There is no diarrhea. The pain is 10/ 10 nonradiating to her back. She's had sweating with this but no documented fevers. She's on control doesn't believe she is . She denies dysuria. No medications been taken other than control pills. She had a test done on August 05 that was negative. She has had pain like this before. She is unable to state what the cause was in the past. The patient occasionally smokes marijuana. No alcohol is been ingested recently. No fevers, chills, chest pain, palpitations, shortness of breath, depression, visual changes, headache. Allergies: Coded Allergies: No Known Allergies (Unverified , 10/02/15) Patient History Past Medical History: see triage record Social History: Reports: smoking, drug use - THC Social History Narrative from home Reviewed Nursing Documentation: PMH: Agreed; PSxH: Agreed Nursing Documentation-PMH Hx Cardiac Problems: No Hx Asthma: Yes Hx Cancer: No Hx Gastrointestinal Problems: Yes - Gastritis Hx Neurological Problems: Yes Hx Headaches: Yes - Migraines Review of Systems All Other Systems: negative except mentioned in HPI Physical Exam Vital Signs Date Time Temp Pulse Resp B/P (MAP) Pulse Ox O2 Delivery O2 Flow Rate FiO2 08/20/18 13:58 96 15 133/93 97 Room Air Sp02 EP Interpretation: reviewed, normal General Appearance: alert, GCS 15, non-toxic, mild distress - And pain Head: normocephalic Eyes: bilateral eye PERRL, bilateral eye Scleral Injection ENT: moist mucus membranes Neck: supple Respiratory: lungs clear, normal breath sounds Cardiovascular #1: regular rate, rhythm Cardiovascular #2: 2+ radial (R) Gastrointestinal: normal inspection, soft, no mass, non-distended, no rebound, guarding, tenderness - Epigastric, decreased bowel sounds Musculoskeletal: back normal, gait/station normal, normal range of motion Neurologic: alert Psychiatric: other - Writhing in pain Skin: normal inspection, warm/dry Medical Decision Making Diagnostic Impression: Primary Impression: Hyperemesis Additional Impressions: Gastritis Qualified Codes: K29.00 - Acute gastritis without bleeding Early stage of ER Course Patient presents with epigastric pain and vomiting. Differential includes cyclic vomiting, gastritis, GERD, peptic ulcer disease, pancreatitis amongst others. Evaluation will be with labs. Patient retreated with IV hydration, Pepcid, Reglan, Benadryl and morphine. Patient still with pain. Morphine is repeated. Lab called with positive . Quantitative ordered. Slightly elevated white count. CMP and lipase normal. Improved but still with pain. Trial PO fluids. Discussed with Dr. Person at [place] who accepts the patient. Quantitative hCG 2130 Still complains about significant pain but stable for transfer. Improved. Laboratory Tests Test 08/20/18 14:10 08/20/18 15:00 White Blood Count 11.1 K/UL (4.8-10.8) H Red Blood Count 4.90 M/UL (4.20-5.40) Hemoglobin 12.2 G/DL (12.0-16.0) Hematocrit 38.7 % (37.0-47.0) Mean Corpuscular Volume 79 FL (80-99) L Mean Corpuscular Hemoglobin 24.9 PG (27.0-31.0) L Mean Corpuscular Hemoglobin Concent 31.5 G/DL (32.0-36.0) L Red Cell Distribution Width 16.3 % (11.6-14.8) H Platelet Count 321 K/UL (150-450) Mean Platelet Volume 5.8 FL (6.5-10.1) L Neutrophils (%) (Auto) % (45.0-75.0) Lymphocytes (%) (Auto) % (20.0-45.0) Monocytes (%) (Auto) % (1.0-10.0) Eosinophils (%) (Auto) % (0.0-3.0) Basophils (%) (Auto) % (0.0-2.0) Differential Total Cells Counted 100 Neutrophils % (Manual) 84 % (45-75) H Lymphocytes % (Manual) 15 % (20-45) L Monocytes % (Manual) 1 % (1-10) Eosinophils % (Manual) 0 % (0-3) Basophils % (Manual) 0 % (0-2) Band Neutrophils 0 % (0-8) Platelet Estimate Adequate Platelet Morphology Normal Anisocytosis 1+ Microcytosis 1+ Prothrombin Time 10.4 SEC (9.30-11.50) Prothrombin Time INR 1.0 (0.9-1.1) PTT 25 SEC (23-33) Sodium Level 138 MMOL/L (136-145) Potassium Level 3.6 MMOL/L (3.5-5.1) Chloride Level 103 MMOL/L (98-107) Carbon Dioxide Level 22 MMOL/L (21-32) Anion Gap 13 mmol/L (5-15) Blood Urea Nitrogen 11 mg/dL (7-18) Creatinine 0.8 MG/DL (0.55-1.30) Estimate Glomerular Filtration Rate > 60 mL/min (>60) Glucose Level 123 MG/DL (74-106) H Calcium Level 9.7 MG/DL (8.5-10.1) Total Bilirubin 0.7 MG/DL (0.2-1.0) Aspartate Amino Transferase (AST) 34 U/L (15-37) Alanine Aminotransferase (ALT) 37 U/L (12-78) Alkaline Phosphatase 70 U/L (46-116) Total Protein 8.5 G/DL (6.4-8.2) H Albumin 4.3 G/DL (3.4-5.0) Globulin 4.2 g/dL Albumin/Globulin Ratio 1.0 (1.0-2.7) Lipase 161 U/L (73-393) Human Chorionic Gonadotropin, Qual Positive (NEGATIVE) Urine Color Pale yellow Urine Appearance Clear Urine pH 6 (4.5-8.0) Urine Specific [place] 1.015 (1.005-1.035) Urine Protein 2+ (NEGATIVE) H Urine Glucose (UA) Negative (NEGATIVE) Urine Ketones 3+ (NEGATIVE) H Urine Blood Negative (NEGATIVE) Urine Nitrite Negative (NEGATIVE) Urine Bilirubin Negative (NEGATIVE) Urine Urobilinogen Normal MG/DL (0.0-1.0) Urine Leukocyte Esterase 1+ (NEGATIVE) H Urine RBC 0-2 /HPF (0 - 2) Urine WBC 2-4 /HPF (0 - 2) Urine Squamous Epithelial Cells Few /LPF (NONE/OCC) Urine Bacteria Few /HPF (NONE) Human Chorionic Gonadotropin, Quant 2130 mIU/mL (1-6) H Last Vital Signs Date Time Temp Pulse Resp B/P (MAP) Pulse Ox O2 Delivery O2 Flow Rate FiO2 08/20/18 22:07 98.1 87 16 116/64 100 Room Air Status: improved Disposition: XFER SHT-TRM HOSP Condition: Serious - stable for transfer Dion Coppola MD Aug 20, 2018 14:11
[2018-08-20] MEDS ORDERED: DiphenhydrAMINE 50mg/ml Inj IVP ONE (14:15)
[2018-08-20] MEDS ORDERED: Morphine Sulfate 4mg/ml Inj (IV USE ONLY) IVP ONE ×3 (14:15→16:00)
[2018-08-20] MEDS ORDERED: Metoclopramide 10mg/2ml Inj IVP ONE (14:15)
[2018-08-20 14:34] LABS: HEMATOCRIT 38.7 % (37.0-47.0); HEMOGLOBIN 12.2 G/DL (12.0-16.0); MEAN CORPUSCULAR VOLUME 79 FL (80-99); PLATELET COUNT 321 K/UL (150-450); RED CELL DISTRIBUTION WIDTH 16.3 % (11.6-14.8); WHITE BLOOD COUNT 11.1 K/UL (4.8-10.8)
[2018-08-20 14:49] LABS: ANION GAP 13 mmol/L (5-15); BLOOD UREA NITROGEN 11 mg/dL (7-18); CALCIUM 9.7 MG/DL (8.5-10.1); CARBON DIOXIDE 22 MMOL/L (21-32); CHLORIDE 103 MMOL/L (98-107); CREATININE 0.8 MG/DL (0.55-1.30); POTASSIUM 3.6 MMOL/L (3.5-5.1); SODIUM 138 MMOL/L (136-145)
[2018-08-20 14:54] LABS: ALANINE AMINOTRANSFERASE 37 U/L (12-78); ALBUMIN 4.3 G/DL (3.4-5.0); ALKALINE PHOSPHATASE 70 U/L (46-116); ASPARTATE AMINO TRANSFERASE 34 U/L (15-37); BILIRUBIN,TOTAL 0.7 MG/DL (0.2-1.0)
--- NOTE | 2018-08-20 15:30 | NUR ---
ED Nurse Note: Pt. AAOx4. wheeled to the bed due to severe abd pain that started this morning with n/v. Denies diarrhea.
[2018-08-20 16:08] LABS: APPEARANCE,URINE CLEAR; BILIRUBIN, URINE NEGATIVE (NEGATIVE); COLOR,URINE PALE YELLOW; GLUCOSE, URINE (UA) NEGATIVE (NEGATIVE); KETONES,URINE 3+ (NEGATIVE); LEUKOCYTE ESTERASE ,URINE 1+ (NEGATIVE); NITRITE,URINE NEGATIVE (NEGATIVE); PH,URINE 6 (4.5-8.0); PROTEIN,URINE 2+ (NEGATIVE); UROBILINOGEN,URINE NORMAL MG/DL (0.0-1.0)
[2018-08-20 16:18] VITALS: BP 114/68
--- NOTE | 2018-08-20 17:24 | NUR ---
ED Nurse Note: [facility]
[2018-08-20] MEDS ORDERED: Hydromorphone 0.5mg/0.5ml inj IVP ONE (18:00)
--- NOTE | 2018-08-20 19:04 | NUR ---
HAND-OFF: Report given to WENDY Pickett.
[2018-08-20 19:10] VITALS: BP 109/87
--- NOTE | 2018-08-20 19:10 | NUR ---
ED Nurse Note: received report from RN Katya and assumed care, pt vss, resp even and unlabored on RA, denies nausea at this time, will cont monitor. pt advised to notify staff if needed assist.
[2018-08-20 20:00] VITALS: BP 114/69
--- NOTE | 2018-08-20 20:59 | NUR ---
ED Nurse Note: Recieved. Pt looks comfortable, and admits so, denying pain, no vomiting. Awaiting transfer to [facility]. IVNS infusing at 300cc/hr.
[2018-08-20 21:01] VITALS: BP 104/62
--- NOTE | 2018-08-20 21:43 | NUR ---
ED Nurse Note: report given to WENDY Ayala from [facility], pt going to [facility] for continuation of care. pending xfr.
--- NOTE | 2018-08-20 22:06 | NUR ---
ED Nurse Note: report given to ambulance staff, pt transferring to [facility]. all belongings sent w/ pt. iv intact and patent.
[2018-08-20 22:07] VITALS: BP 116/64
== END 2018-08-20 22:11 | disposition short-term general hospital (02) ==
LOC: EMR 14:32
DX: O21.9 Vomiting of pregnancy, unspecified (principal); R10.13 Epigastric pain; O99.619 Diseases of the digestive system complicating pregnancy, unspecified trimester; K92.89 Other specified diseases of the digestive system; Z3A.00 Weeks of gestation of pregnancy not specified; K29.00 Acute gastritis without bleeding
CPT/HCPCS: 36415; 80053; 81003; 83690; 84702; 84703; 85007; 85025; 85610; 85730; 96361; 96374; 96375; 96376; 99285; J0780; J1170; J1200; J2270; J2765; S0028

== ENCOUNTER 2019-01-05 02:08 | Emergency (ER) | payer MEDICAID ==
[~2019-01-05] VITALS: Ht 160 cm; Wt 68.0 kg
--- NOTE | 2019-01-05 02:32 | NUR ---
ED Nurse Note: PT WALKED IN C/O HEADACHE, NAUSEA AND PHOTOSENSITIVITY FOR PAST TWO DAYS, DENIES VOMITING. PT REPORTS SHE IS 26 WKS AND THIS IS HER THIRD , DUE DATE IS 04/23/2018. PT VSS, AA&OX4, GCS=15, SKIN WARM AND DRY, RESP EVEN AND UNLAOBRED ON RA, -N/V/D AT THIS TIME, AMBULATORY W/ STEADY GAIT.
[2019-01-05 02:33] VITALS: BP 102/59
[2019-01-05] MEDS ORDERED: Acetaminophen 500mg (ES) tab ORAL ONE (02:45)
--- NOTE | 2019-01-05 02:54 | NUR ---
AMA: SEE AMA FORM.
--- NOTE | 2019-01-05 02:55 | NUR ---
AMA: SEE AMA FORM. Patient presented [address] Bae explained to the pt that we do not have monitor at [facility], but we can perform all labs, and admin pain mneds. Patient had breaf conversation with her , and they decided to leave. Couple decided to go to [facility].
--- NOTE | 2019-01-05 05:33 | Emergency Room Report ---
History of Present Illness General Chief Complaint: Headache Source: Patient Present Illness HPI 23-year-old female presents ED for evaluation. Complaining of headache for the last 3 days. Frontal, throbbing, 8 out of 10, nonradiating. Notes nausea and vomiting. States she has had previous headaches similar but is now about 26 weeks. Denies any vaginal bleeding or discharge. Notes some cramping discomfort. Denies fevers or chills. No other aggravating relieving factors. Denies any other associated symptoms Allergies: Coded Allergies: No Known Allergies (Unverified , 10/02/15) Patient History Past Medical History: asthma, GERD Past Surgical History: none Pertinent Family History: none Social History: Denies: smoking, alcohol use, drug use Now: Yes - due date 04/23/18 : 3 Immunizations: UTD Reviewed Nursing Documentation: PMH: Agreed; PSxH: Agreed Nursing Documentation-PMH Past Medical History: No Stated History Hx Cardiac Problems: No Hx Asthma: Yes Hx Cancer: No Hx Gastrointestinal Problems: Yes - Gastritis Hx Neurological Problems: Yes Hx Headaches: Yes - Migraines Review of Systems All Other Systems: negative except mentioned in HPI Physical Exam Vital Signs Date Time Temp Pulse Resp B/P (MAP) Pulse Ox O2 Delivery O2 Flow Rate FiO2 01/05/19 02:26 98.8 73 18 102/59 (73) 98 Room Air Sp02 EP Interpretation: reviewed, normal General Appearance: no apparent distress, alert, GCS 15, non-toxic Head: normocephalic, atraumatic Eyes: bilateral eye normal inspection, bilateral eye PERRL ENT: hearing grossly normal, normal pharynx, no angioedema, normal voice Neck: full range of motion, supple/symm/no masses Respiratory: chest non-tender, lungs clear, normal breath sounds, speaking full sentences Cardiovascular #1: regular rate, rhythm, no edema Cardiovascular #2: 2+ carotid (R), 2+ carotid (L), 2+ radial (R), 2+ radial (L) , 2+ dorsalis pedis (R), 2+ dorsalis pedis (L) Gastrointestinal: normal bowel sounds, non tender, soft, non-distended, no guarding, no rebound Rectal: deferred Genitourinary: normal inspection, no CVA tenderness Musculoskeletal: back normal, gait/station normal, normal range of motion, non- tender Neurologic: alert, oriented x3, responsive, motor strength/tone normal, sensory intact, speech normal Psychiatric: judgement/insight normal, memory normal, mood/affect normal, no suicidal/homicidal ideation Reflexes: 3+ bicep (R), 3+ bicep (L), 3+ tricep (R), 3+ tricep (L), 3+ knee (R) , 3+ knee (L) Skin: other Lymphatic: no adenopathy Medical Decision Making Diagnostic Impression: Primary Impression: Hyperemesis ER Course Hospital Course 23-year-old female presents with headache and vomiting with pain. 26 weeks Differential diagnoses include: gastrits, gastroenterits, ectopic , ovarian torsion/cyst, UTI Clinical course Patient placed on stretcher in ED. After initial history and physical I ordered labs, IV fluids, tylenol and Zofran and OB ultrasound. Patient understands that we do not have labor and delivery or monitoring. Initially agreed to work-up but then stated that she would prefer to go to another hospital. Understands the risks of leaving. Patient has competency to make her own decisions. Signed AMA form. Diagnosis - hyperemesis patient left AMA Last Vital Signs Date Time Temp Pulse Resp B/P (MAP) Pulse Ox O2 Delivery O2 Flow Rate FiO2 01/05/19 02:55 98.8 81 18 102/59 98 Room Air Status: unchanged Disposition: AGAINST MEDICAL ADVICE Condition: Stable Referrals: NON PHYSICIAN (PCP) Lee Chaidez MD Jan 05, 2019 05:33
== END 2019-01-05 02:55 | disposition left against medical advice (07) ==
LOC: EMR 02:45
DX: O21.2 Late vomiting of pregnancy (principal); Z3A.26 26 weeks gestation of pregnancy; R51 Headache
CPT/HCPCS: 96374; Z7502; 99284

== ENCOUNTER 2019-04-14 17:52 | Emergency (ER) | payer MEDICAID ==
[~2019-04-14] VITALS: Ht 162.6 cm; Wt 81.6 kg
--- NOTE | 2019-04-14 18:18 | Emergency Room Report ---
History of Present Illness General Chief Complaint: Complications Source: Patient Present Illness HPI 24-year-old female G3 A1, 38 weeks presents with abdominal cramps that started at 12 PM, she denies any gush of fluid, she endorses achy abdominal pain no aggravating alleviating factors she states that she feels contractions, severity is moderate, intermittent patient presents for evaluation. Allergies: Coded Allergies: No Known Allergies (Unverified , 10/02/15) Patient History Past Medical History: see triage record Last Menstrual Period: 06/2018 Reviewed Nursing Documentation: PMH: Agreed; PSxH: Agreed Nursing Documentation-PMH Past Medical History: No Stated History Hx Cardiac Problems: No Hx Asthma: Yes Hx Cancer: No Hx Gastrointestinal Problems: Yes - Gastritis Hx Neurological Problems: Yes Hx Headaches: Yes - Migraines Review of Systems All Other Systems: negative except mentioned in HPI Physical Exam Vital Signs Date Time Temp Pulse Resp B/P (MAP) Pulse Ox O2 Delivery O2 Flow Rate FiO2 04/14/19 18:00 98.2 115 18 111/63 (79) 97 Room Air Sp02 EP Interpretation: reviewed, normal General Appearance: well appearing, no apparent distress, alert Head: normocephalic, atraumatic Eyes: bilateral eye PERRL, bilateral eye EOMI ENT: uvula midline, moist mucus membranes Neck: supple, thyroid normal, supple/symm/no masses Respiratory: lungs clear, no respiratory distress, no retraction, no accessory muscle use Cardiovascular #1: normal peripheral pulses, regular rate, rhythm, no edema, no gallop, no murmur Gastrointestinal: non tender, soft, no guarding, no rebound, other - gravid abdomen Genitourinary: ext genitalia/vag normal, other - [place] 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 [facility] called, Dr. Boswell accepted patient will send patient to labor and delivery Patient leaving AMA 7:10pm The patient has requested to leave the ED against medical advice. The patient reason(s) for leaving include, but are not limited to, the following:"I don't want to pay the ambulance bill." I believe this patient is of sound mind and competent to refuse medical care. The patient is responding and asking questions appropriately. The patient is oriented to person, place and time. The patient is not psychotic, delusional, suicidal, homicidal or hallucinating. The patient demonstrates a normal mental capacity to make decisions regarding their healthcare. The patient is clinically sober and does not appear to be under the influence of any illicit drugs at this time. The patient has been advised of the risks, in layman terms, of leaving AMA which include, but are not limited to , coma, permanent disability, loss of current lifestyle, delay in diagnosis. Alternatives have been offered - the patient remains steadfast in their wish to leave. The patient has been advised that should they change their mind they are welcome to return to this hospital, or any other, at any time. The patient understands that in no way does an AMA discharge mean that I do not want them to have the best medical care available. To this end, I have provided appropriate prescriptions, referrals, and discharge instructions. The patient did sign AMA paperwork. The above discussion was witnessed by another member of staff. Patient states she is going to drive herself to [facility]. Laboratory Tests Test 04/14/19 18:30 White Blood Count 14.7 K/UL (4.8-10.8) H Red Blood Count 4.53 M/UL (4.20-5.40) Hemoglobin 10.1 G/DL (12.0-16.0) L Hematocrit 32.8 % (37.0-47.0) L Mean Corpuscular Volume 72 FL (80-99) L Mean Corpuscular Hemoglobin 22.3 PG (27.0-31.0) L Mean Corpuscular Hemoglobin Concent 30.8 G/DL (32.0-36.0) L Red Cell Distribution Width 17.7 % (11.6-14.8) H Platelet Count 317 K/UL (150-450) Mean Platelet Volume 4.9 FL (6.5-10.1) L Neutrophils (%) (Auto) 83.1 % (45.0-75.0) H Lymphocytes (%) (Auto) 9.5 % (20.0-45.0) L Monocytes (%) (Auto) 6.2 % (1.0-10.0) Eosinophils (%) (Auto) 0.7 % (0.0-3.0) Basophils (%) (Auto) 0.5 % (0.0-2.0) Prothrombin Time 9.2 SEC (9.30-11.50) L Prothrombin Time INR 0.9 (0.9-1.1) PTT 23 SEC (23-33) Sodium Level 136 MMOL/L (136-145) Potassium Level 4.0 MMOL/L (3.5-5.1) Chloride Level 102 MMOL/L (98-107) Carbon Dioxide Level 24 MMOL/L (21-32) Anion Gap 10 mmol/L (5-15) Blood Urea Nitrogen 12 mg/dL (7-18) Creatinine 0.8 MG/DL (0.55-1.30) Estimate Glomerular Filtration Rate > 60 mL/min (>60) Glucose Level 116 MG/DL (74-106) H Calcium Level 9.0 MG/DL (8.5-10.1) Total Bilirubin 0.4 MG/DL (0.2-1.0) Aspartate Amino Transferase (AST) 18 U/L (15-37) Alanine Aminotransferase (ALT) 16 U/L (12-78) Alkaline Phosphatase 170 U/L (46-116) H Total Protein 6.9 G/DL (6.4-8.2) Albumin 2.7 G/DL (3.4-5.0) L Globulin 4.2 g/dL Albumin/Globulin Ratio 0.6 (1.0-2.7) L Lipase 211 U/L (73-393) Human Chorionic Gonadotropin, Quant 32938 mIU/mL (1-6) H Last Vital Signs Date Time Temp Pulse Resp B/P (MAP) Pulse Ox O2 Delivery O2 Flow Rate FiO2 04/14/19 18:00 98.2 115 18 111/63 (79) 97 Room Air Disposition: AGAINST MEDICAL ADVICE Condition: Stable Referrals: NON PHYSICIAN (PCP) Marvin Severion MD Apr 14, 2019 18:18
--- NOTE | 2019-04-14 18:35 | NUR ---
ED Nurse Note:pt. is 38 weeks ,VSS, blood sent to labs , given IV fluids, pt. reported lower abdominal cramping, and thick vaginal discharge, no bleeding
--- NOTE | 2019-04-14 18:40 | NUR ---
ED Nurse Note: heart rate was measured with doppler by BLANCHE NUNEZ
--- NOTE | 2019-04-14 18:40 | NUR ---
ED Nurse Note: heart rate is 132
[2019-04-14 18:53] VITALS: BP 111/63
--- NOTE | 2019-04-14 18:53 | NUR ---
ED Nurse Note:abdominal U/S being done in the room
[2019-04-14 18:55] LABS: ANION GAP 10 mmol/L (5-15); BLOOD UREA NITROGEN 12 mg/dL (7-18); CARBON DIOXIDE 24 MMOL/L (21-32); CHLORIDE 102 MMOL/L (98-107); CREATININE 0.8 MG/DL (0.55-1.30); SODIUM 136 MMOL/L (136-145)
[2019-04-14 18:56] LABS: INR 0.9 (0.9-1.1)
[2019-04-14 18:58] LABS: BASOPHILS % (AUTO) 0.5 % (0.0-2.0); EOSINOPHILS % (AUTO) 0.7 % (0.0-3.0); HEMATOCRIT 32.8 % (37.0-47.0); HEMOGLOBIN 10.1 G/DL (12.0-16.0); LYMPHOCYTES % (AUTO) 9.5 % (20.0-45.0); MEAN CORPUSCULAR VOLUME 72 FL (80-99); MONOCYTES % (AUTO) 6.2 % (1.0-10.0); NEUTROPHILS % (AUTO) 83.1 % (45.0-75.0); PLATELET COUNT 317 K/UL (150-450); RED BLOOD COUNT 4.53 M/UL (4.20-5.40); RED CELL DISTRIBUTION WIDTH 17.7 % (11.6-14.8); WHITE BLOOD COUNT 14.7 K/UL (4.8-10.8)
[2019-04-14 19:00] LABS: ALANINE AMINOTRANSFERASE 16 U/L (12-78); ALBUMIN 2.7 G/DL (3.4-5.0); ALBUMIN/GLOBULIN RATIO 0.6 (1.0-2.7); ALKALINE PHOSPHATASE 170 U/L (46-116); ASPARTATE AMINO TRANSFERASE 18 U/L (15-37); BILIRUBIN,TOTAL 0.4 MG/DL (0.2-1.0)
--- NOTE | 2019-04-14 19:20 | NUR ---
ED Nurse Note:pt. was explained that she will be transfered to [facility] by embulance - but pt is refusing and wonts to be driven there by her partner and go AMA after U/S is complited
--- NOTE | 2019-04-14 19:22 | NUR ---
HAND-OFF: Report given to Vipul.
[2019-04-14 19:30] VITALS: BP 111/63
--- NOTE | 2019-04-14 20:12 | Diagnostic Imaging Report ---
Indication: Late third trimester . Patient presents with pelvic pain Technique: Grayscale and duplex Doppler imaging of the pelvis performed utilizing a transabdominal scan. Comparison: None Findings: Single living intrauterine demonstrated composite gestational age 36 weeks one day. presentation is vertex. The cervix is closed and measures approximately 4.3 cm in length. measurements as follows: Biparietal diameter 92.4 mm, 37 weeks 4 days. Head circumference 320 mm, 36 weeks Abdominal circumference 330 mm, 37 weeks Femur length 66 mm, 33 weeks 6 days. anatomy not assessed on this examination which is a limited study. Estimated weight 2858grams. IMPRESSION: Single living IUP composite gestational age 36 weeks one day. Vertex presentation. anatomy not assessed Close cervix. Note: A negative ultrasound evaluation does not insure well-being or positive outcome for the . monitoring including a nonstress test may be needed and clinical evaluation by HAND PATTERN MARKER is highly recommended.
--- NOTE | 2019-04-14 20:28 | NUR ---
AMA: Patient signed form and plans to drive directlyb iover to [facility] despite hospital travel arrangements. SEE AMA FORM.
== END 2019-04-14 19:30 | disposition left against medical advice (07) ==
LOC: EMR 18:11
DX: O60.03 Preterm labor without delivery, third trimester (principal); Z3A.38 38 weeks gestation of pregnancy
CPT/HCPCS: 36415; 76805; 80053; 83690; 84702; 85025; 85610; 85730; 86850; 86900; 86901; 96360; Z7502; 99284